=== PATIENT | male | born 1995 ===

== ENCOUNTER 2018-02-15 05:39 | Emergency (ER) | payer OTHER ==
[2018-02-15 06:08] VITALS: RESP 16
--- NOTE | 2018-02-15 06:43 | ED PDOC ---
History of Present Illness History of Present Illness: 23 year old male presents to ED with complaints of flu-like symptoms x24 hours and has no past medical history. (+) intermittent subjective fever, chills, sore throat, and nasal congestion. (-) nausea, vomiting, abdominal pain, cough, or decreased appetite. Patient confirms he took Nyquil 9 hours ago. Patient confirms receiving flu vaccine this year. PCP: None HPI: Influenza Time Seen by Provider: 02/15/18 05:44 Chief Complaint: Fever Chief Complaint (Provider): Flu-Like Symptoms History Per: Patient Exam Limitations: no limitations Have you had recent travel within the past 21 days to any of: No Onset/Duration Of Symptoms: Days (x1) Sick Contacts (Context): None Hx Influenza Vaccination: Yes Past Medical History Reviewed: Historical Data, Nursing Documentation, Vital Signs Vital Signs: Last Vital Signs Temp 99.6 F 02/15/18 06:05 Pulse 105 H 02/15/18 06:05 Resp 16 02/15/18 06:05 BP 136/76 02/15/18 06:05 Pulse Ox 96 02/15/18 06:05 - Medical History PMH: No Chronic Diseases - Surgical History Surgical History: No Surg Hx - Family History Family History: States: Unknown Family Hx - Social History Current smoker - smoking cessation education provided: No Ex-Smoker (has not smoked in the last 12 months): No Alcohol: None Drugs: Denies - Allergies Allergies/Adverse Reactions: Allergies Allergy/AdvReac Type Severity Reaction Status Date / Time No Known Allergies Allergy Verified 02/15/18 06:04 Review of Systems ROS Statement: Except As Marked, All Systems Reviewed And Found Negative Constitutional: Positive for: Fever (subjective), Chills ENT: Positive for: Nose Congestion, Throat Pain Respiratory: Negative for: Cough Gastrointestinal: Negative for: Nausea, Vomiting, Abdominal Pain, Other ((-) decreased appetite) Physical Exam - Reviewed Nursing Documentation Reviewed: Yes Vital Signs Reviewed: Yes - Physical Exam Appears: Positive for: Non-toxic, No Acute Distress Skin: Positive for: Normal Color, Warm, Dry Eye Exam: Positive for: Normal appearance, EOMI, PERRL ENT: Positive for: Pharyngeal Erythema. Negative for: Normal ENT Inspection Neck: Positive for: Normal, Painless ROM, Supple Cardiovascular/Chest: Positive for: Regular Rate, Rhythm, Tachycardia Respiratory: Positive for: Normal Breath Sounds. Negative for: Respiratory Distress Gastrointestinal/Abdominal: Positive for: Normal Exam, Soft. Negative for: Tenderness Extremity: Positive for: Normal ROM. Negative for: Deformity Neurologic/Psych: Positive for: Alert, Oriented. Negative for: Motor/Sensory Deficits Medical Decision Making Medical Decision Makin Initial impression: flu-like symptoms Initial plan: * Acetaminophen 975mg PO * Influenza A B * Rapid strep * Re-eval 0700 Patient will be signed out to Dr. Mace pending labs and re-evaluation. Scribe Attestation: Documented by Rosaura Lopez acting as a scribe for Jason Valdes MD. Scribe Attestation: All medical record entries made by the Scribe were at my direction and personally dictated by me. I have reviewed the chart and agree that the record accurately reflects my personal performance of the history, physical exam, medical decision making, and the department course for this patient. I have also personally directed, reviewed, and agree with the discharge instructions and disposition. - ECG O2 Sat by Pulse Oximetry: 96 (RA) Pulse Ox Interpretation: Normal Disposition - Clinical Impression Clinical Impression: URI, acute - Patient ED Disposition Is Patient to be Admitted: Transfer of Care - Disposition Referrals: [facility] [Outside] Disposition: Transfer of Care Disposition Time: 07:00 Condition: FAIR Additional Instructions: Take motrin or tylenol for fever or pain. Follow up with your PCP in 3 days. Instructions: Viral Upper Respiratory Infection, Adult (DC) Print Language: SRI LANKAN Patient Signed Over To: Shellie Mace Handoff Comments: pending labs and re-evaluation
--- NOTE | 2018-02-15 07:18 | ED PDOC ---
- ECG O2 Sat by Pulse Oximetry: 96 (RA) Pulse Ox Interpretation: Normal Medical Decision Making Medical Decision Making: Time: 0700 Patient is transferred from Dr. Valdes's care to myself pending lab results. Scribe Attestation: Documented by Mariama Renteria, acting as a scribe for Shellie Mace MD. Provider Scribe Attestation: All medical record entries made by the Scribe were at my direction and personally dictated by me. I have reviewed the chart and agree that the record accurately reflects my personal performance of the history, physical exam, medical decision making, and the department course for this patient. I have also personally directed, reviewed, and agree with the discharge instructions and disposition. Disposition Doctor Will See Patient In The: Office Counseled Patient/Family Regarding: Studies Performed, Diagnosis, Need For Followup - Clinical Impression Clinical Impression: URI, acute - POA Present On Arrival: None - Disposition Referrals: [facility] [Outside] Disposition: Routine/Home Disposition Time: 08:21 Condition: GOOD Additional Instructions: Take motrin or tylenol for fever or pain. Follow up with your PCP in 3 days. Instructions: Viral Upper Respiratory Infection, Adult (DC) Print Language: [email or web address]
[2018-02-15 08:32] VITALS: BP 122/74; PULSE 69; TEMP 99
[2018-02-15 21:48] VITALS: O2SAT 96
== END 2018-02-15 08:35 | disposition home or self-care (01) ==
LOC: H.ER 05:39
DX: J06.9 Acute upper respiratory infection, unspecified (principal); Z23 Encounter for immunization; Z87.891 Personal history of nicotine dependence